=== PATIENT | female | born 1995 | race Caucasian/White ===

== ENCOUNTER 2018-11-29 12:11 | Inpatient (IN) | payer MEDICAID ==
[2018-11-29] MEDS: LACTATED RINGER'S 1,000 ML IV ×3 (07:30→20:04)
[2018-11-29] MEDS ORDERED: MISOPROSTOL 200 MCG TAB PR ×3 (17:00→23:30)
[2018-11-29] MEDS ORDERED: CARBOPROST 250 MCG INJ IM ×3 (17:00→23:30)
[2018-11-29] MEDS ORDERED: METHYLERGONOVINE 0.2 MG INJ IM ×3 (17:00→23:30)
[2018-11-29] MEDS ORDERED: BUTORPHANOL 2 MG INJ IV ×2 (17:00)
[2018-11-29] MEDS ORDERED: OXYTOCIN 30 UNITS/LR 500 ML IV ×6 (17:00→23:30)
[2018-11-29] MEDS ORDERED: LIDOCAINE 1% (MPF) 30 ML INJ INJ (17:00)
[2018-11-29 17:07] LABS: ADD MAN DIFF? NO
[2018-11-29 17:10] LABS: WHITE BLOOD COUNT 8.7 10^3/ul (4.8-10.8)
[2018-11-29 17:10] LABS: BASOPHILS % 0.1 % (0.0-2.0); EOSINOPHILS % 0.3 % (0.0-7.0); HEMATOCRIT 34.9 % (37.0-47.0); HEMOGLOBIN 11.2 g/dl (12.0-16.0); LYMPHOCYTES # 2.1 10^3/ul (0.8-2.9); LYMPHOCYTES % 24.4 % (15.0-51.0); MEAN CORPUSCULAR HEMOGLOBIN 29.6 pg (29.0-33.0); MEAN CORPUSCULAR HGB CONC 32.1 g/dl (32.0-37.0); MEAN CORPUSCULAR VOLUME 92.3 fl (82.0-101.0); MEAN PLATELET VOLUME 10.7 fl (7.4-10.4); MONOCYTE # 0.5 10^3/ul (0.3-0.9); MONOCYTES % 5.9 % (0.0-11.0); NEUTROPHILS % 68.8 % (39.0-77.0); PLATELET COUNT 324 10^3/UL (140-415); RED BLOOD COUNT 3.78 10^6/ul (4.20-5.40); RED CELL DISTRIBUTION WIDTH 13.2 % (11.5-14.5)
[2018-11-29 17:23] LABS: ADD UMIC YES; UR ASCORBIC ACID NEGATIVE (NEGATIVE); UR BACTERIA FEW /HPF (NONE SEEN); UR BILIRUBIN (Dip) NEGATIVE (NEGATIVE); UR BLOOD (Dip) NEGATIVE (NEGATIVE); UR CALCIUM OXALATE CRYSTAL MANY /HPF (NONE SEEN); UR CLARITY CLOUDY (CLEAR); UR COLOR AMBER (YELLOW); UR GLUCOSE (Dip) NEGATIVE (NEGATIVE); UR KETONES (Dip) TRACE mg/dL (NEGATIVE); UR LEUKOCYTE ESTERASE (Dip) NEGATIVE Leu/ul (NEGATIVE); UR MUCUS MANY /HPF (NONE SEEN); UR NITRITE (Dip) NEGATIVE (NEGATIVE); UR RBC 0 /HPF (0-5); UR SPECIFIC GRAVITY (Dip) 1.032 (1.003-1.030); UR SQUAMOUS EPITHELIAL CELL MODERATE /HPF (FEW); UR TOTAL PROTEIN (Dip) 1+ mg/dl (NEGATIVE); UR UROBILINOGEN (Dip) 1+ mg/dL (NEGATIVE); UR WBC 4 /HPF (0-5)
[2018-11-29 17:30] LABS: INR 0.85; PARTIAL THROMBOPLASTIN TIME 25.9 Sec (23.0-35.0); PROTIME 11.7 Sec (11.9-14.9); PT RATIO 0.9
[2018-11-29 17:34] LABS: AMPHETAMINE/METHAMPHETAMINE Negative (NEGATIVE); BARBITURATES Negative (NEGATIVE); BENZODIAZEPINES Negative (NEGATIVE); CANNABINOIDS Negative (NEGATIVE); COCAINE Negative (NEGATIVE); OPIATES Negative (NEGATIVE)
[2018-11-29] MEDS: AMPICILLIN 2 GM/NS (PMX) 100 ML IV (19:39)
[2018-11-29] MEDS ORDERED: CEFAZOLIN 2 GM/50 ML (PMX) 0 ML IVPB (20:03)
[2018-11-29] MEDS ORDERED: CITRIC ACID/NA CITRATE 30 ML CUP (20:12)
[2018-11-29] MEDS ORDERED: ONDANSETRON 4 MG INJ ×2 (20:13→21:08)
[2018-11-29] MEDS: CITRIC ACID/NA CITRATE 30 ML CUP PO ×2 (20:19→20:37)
[2018-11-29] MEDS: ONDANSETRON 4 MG INJ IV ×2 (20:19→20:37)
[2018-11-29] MEDS ORDERED: PHENYLephrine (100 MCG/ML) 10ML SYG (20:20)
[2018-11-29] MEDS ORDERED: morphine SULFATE/PF (10 MG/10 ML) INJ (20:20)
[2018-11-29] MEDS ORDERED: OXYTOCIN 10 UNIT INJ (20:21)
[2018-11-29] MEDS ORDERED: CEFAZOLIN 2 GM/50 ML (PMX) 50 ML IVPB (20:30)
[2018-11-29 20:33] LABS: HEPATITIS B SURFACE ANTIGEN NEGATIVE (NEGATIVE)
[2018-11-29 20:43] LABS: HIV 1&2 ANTIBODY NEGATIVE (NEGATIVE)
[2018-11-29] MEDS: CEFAZOLIN 3 GM in DEXTROSE 5% 100 ML IV (20:52)
[2018-11-29] MEDS: AMPICILLIN 1 GM/NS (PMX) 50 ML IV (21:00)
[2018-11-29] MEDS ORDERED: DEXAMETHASONE 4 MG/ML 1 ML INJ (21:09)
[2018-11-29] MEDS ORDERED: METOCLOPRAMIDE 10 MG INJ (21:09)
[2018-11-29] MEDS ORDERED: KETOROLAC 30 MG INJ (21:09)
[2018-11-29] MEDS ORDERED: HYDROCODONE/APAP (5/325) TAB PO (21:30)
[2018-11-29] MEDS ORDERED: ONDANSETRON 4 MG INJ IV ×3 (21:30→23:30)
[2018-11-29] MEDS ORDERED: FENTAnyl 50 MCG/ML VIAL IV ×2 (21:30)
[2018-11-29] MEDS ORDERED: ACETAMINOPHEN 500 MG TAB PO (21:30)
[2018-11-29] MEDS ORDERED: NALBUPHINE HCL (10 MG/1 ML) INJ IV (21:30)
[2018-11-29] MEDS ORDERED: METOCLOPRAMIDE 10 MG INJ IV (21:30)
[2018-11-29] MEDS ORDERED: OXYCODONE/ACETAMINOPHEN (5/325) TAB PO (21:30)
[2018-11-29] MEDS ORDERED: HYDROmorphONE 0.5 MG/0.5 ML SYG IV ×2 (21:30)
[2018-11-29] MEDS ORDERED: DIPHENHYDRAMINE 50 MG INJ IV (21:30)
[2018-11-29] MEDS ORDERED: NALOXONE (0.4 MG/ML) INJ IV (21:30)
[2018-11-29] MEDS ORDERED: HYDROmorphONE 1 MG/5 ML IV SYRINGE IV ×2 (21:30)
[2018-11-29] MEDS ORDERED: EPHEDrine 25 MG/5 ML SYG IV (21:30)
[2018-11-29] MEDS ORDERED: KETOROLAC 30 MG INJ IV (21:30)
[2018-11-29] MEDS ORDERED: morphine 2 MG INJ IV ×2 (21:30)
[2018-11-29] MEDS ORDERED: MEPERIDINE 25 MG INJ IV (21:30)
[2018-11-29] MEDS ORDERED: MEPERIDINE 100 MG INJ (21:31)
[2018-11-29] MEDS: DIPHENHYDRAMINE 50 MG INJ IV (22:54)
[2018-11-29] MEDS: OXYTOCIN 30 UNITS/LR 500 ML IV (22:57)
[2018-11-29] MEDS ORDERED: ACETAMINOPHEN 325 MG TAB PO (23:30)
[2018-11-29] MEDS ORDERED: LANOLIN HPA 1 PKT TOP (23:30)
[2018-11-29] MEDS ORDERED: BISACODYL 10 MG SUPP PR (23:30)
[2018-11-29] MEDS ORDERED: IBUPROFEN 600 MG TAB PO (23:30)
[2018-11-29] MEDS: CEFAZOLIN 1 GM/50 ML (PMX) 50 ML IVPB (23:54)
[2018-11-30] MEDS: OXYTOCIN 30 UNITS/LR 500 ML IV (04:05)
[2018-11-30] MEDS: LACTATED RINGER'S 1,000 ML IV ×3 (07:00→18:51)
[2018-11-30] MEDS: CEFAZOLIN 1 GM/50 ML (PMX) 50 ML IVPB ×2 (07:19→15:43)
[2018-11-30 08:42] LABS: ADD MAN DIFF? NO
[2018-11-30 08:54] LABS: WHITE BLOOD COUNT 15.9 10^3/ul (4.8-10.8)
[2018-11-30 08:54] LABS: BASOPHILS % 0.1 % (0.0-2.0); HEMOGLOBIN 8.2 g/dl (12.0-16.0); LYMPHOCYTES # 1.6 10^3/ul (0.8-2.9); LYMPHOCYTES % 10.3 % (15.0-51.0); MEAN CORPUSCULAR HEMOGLOBIN 30.1 pg (29.0-33.0); MEAN CORPUSCULAR HGB CONC 32.8 g/dl (32.0-37.0); MEAN CORPUSCULAR VOLUME 91.9 fl (82.0-101.0); MONOCYTE # 0.7 10^3/ul (0.3-0.9); MONOCYTES % 4.3 % (0.0-11.0); NEUTROPHIL # 13.5 10^3/ul (1.6-7.5); NEUTROPHILS % 84.8 % (39.0-77.0); PLATELET COUNT 262 10^3/UL (140-415); RED BLOOD COUNT 2.72 10^6/ul (4.20-5.40); RED CELL DISTRIBUTION WIDTH 13.1 % (11.5-14.5)
[2018-11-30 09:05] LABS: ALANINE AMINOTRANSFERASE 16 IU/L (13-69); ALBUMIN 2.7 g/dl (3.3-4.9); ALBUMIN/GLOBULIN RATIO 0.96; ALKALINE PHOSPHATASE 133 IU/L (42-121); ANION GAP 4 (5-13); ASPARTATE AMINO TRANSFERASE 20 IU/L (15-46); BILIRUBIN,INDIRECT 0.3 mg/dl (0-1.1); BILIRUBIN,TOTAL 0.3 mg/dl (0.2-1.3); BLOOD UREA NITROGEN 10 mg/dl (7-20); CALCIUM 8.3 mg/dl (8.4-10.2); CARBON DIOXIDE 23 mmol/L (21-31); CHLORIDE 107 mmol/L (97-110); CREATININE 0.56 mg/dl (0.44-1.00); Estimated GFR > 60 mL/min (>60); GLUCOSE 108 mg/dl (70-220); POTASSIUM 4.1 mmol/L (3.5-5.1); SODIUM 134 mmol/L (135-144); TOTAL PROTEIN 5.5 g/dl (6.1-8.1)
[2018-11-30] MEDS: ENOXAPARIN 40 MG/0.4 ML SYG SC (10:58)
[2018-11-30] MEDS: OXYCODONE/ACETAMINOPHEN (5/325) TAB PO ×2 (18:13→23:56)
[2018-11-30 19:26] LABS: RUBELLA ANTIBODY - IGG 1.16 index
[2018-11-30] MEDS: IBUPROFEN 800 MG TAB PO (20:18)
[2018-11-30] MEDS ORDERED: IBUPROFEN 600 MG TAB PO (20:18)
[2018-11-30] MEDS: SENNA/DOCUSATE NA (8.6MG/50MG) TAB PO (21:25)
[2018-11-30 21:39] LABS: RAPID PLASMA REAGIN NONREACTIVE (NR)
[2018-12-01] MEDS: LACTATED RINGER'S 1,000 ML IV ×3 (04:04→18:16)
[2018-12-01] MEDS: IBUPROFEN 800 MG TAB PO ×3 (05:39→20:18)
[2018-12-01] MEDS: OXYCODONE/ACETAMINOPHEN (5/325) TAB PO (08:49)
[2018-12-01] MEDS: MAGNESIUM HYDROXIDE 30ML CUP PO (08:49)
[2018-12-01] MEDS: ENOXAPARIN 40 MG/0.4 ML SYG SC (08:51)
[2018-12-02] MEDS: IBUPROFEN 800 MG TAB PO ×2 (04:15→12:35)
[2018-12-02] MEDS: ENOXAPARIN 40 MG/0.4 ML SYG SC (10:05)
[2018-12-02] MEDS: BISACODYL 10 MG SUPP PR (11:51)
[2018-12-02 12:16] LABS: ADD MAN DIFF? NO
[2018-12-02 12:22] LABS: BASOPHILS % 0.2 % (0.0-2.0); EOSINOPHILS # 0.1 10^3/ul (0.0-0.5); EOSINOPHILS % 1.3 % (0.0-7.0); HEMATOCRIT 26.3 % (37.0-47.0); HEMOGLOBIN 8.3 g/dl (12.0-16.0); LYMPHOCYTES # 1.6 10^3/ul (0.8-2.9); LYMPHOCYTES % 16.3 % (15.0-51.0); MEAN CORPUSCULAR HEMOGLOBIN 30.3 pg (29.0-33.0); MEAN CORPUSCULAR HGB CONC 31.6 g/dl (32.0-37.0); MEAN PLATELET VOLUME 10.2 fl (7.4-10.4); MONOCYTE # 0.5 10^3/ul (0.3-0.9); MONOCYTES % 5.6 % (0.0-11.0); NEUTROPHIL # 7.3 10^3/ul (1.6-7.5); NEUTROPHILS % 75.9 % (39.0-77.0); PLATELET COUNT 305 10^3/UL (140-415); RED BLOOD COUNT 2.74 10^6/ul (4.20-5.40); RED CELL DISTRIBUTION WIDTH 13.4 % (11.5-14.5)
[2018-12-02 12:22] LABS: WHITE BLOOD COUNT 9.6 10^3/ul (4.8-10.8)
[2018-12-03 13:27] LABS: RUBELLA ANTIBODY - IGM <20.00 AU/mL
== END 2018-12-02 19:17 | disposition home or self-care (01) | DRG 788 ==
LOC: OBT 12:11 → PP1 11-30 00:39 → L-D 12:11 → OBT 15:40 → L-D 15:40
PROC: 10D00Z1 Extraction of Products of Conception, Low, Open Approach (ICD-10-PCS; principal; 2018-11-29)
DX: O36.63X0 Maternal care for excessive fetal growth, third trimester, not applicable or unspecified (principal); O33.9 Maternal care for disproportion, unspecified; Z3A.39 39 weeks gestation of pregnancy; Z37.0 Single live birth
CPT/HCPCS: 76815; 76818; 80053; 80307; 81001; 85025; 85610; 85730; 86592; 86703; 86762; 86850; 86900; 86901; 87340; 88307; 99464